=== PATIENT | male | born 1930 | race Caucasian/White ===

== ENCOUNTER 2017-11-08 08:00 | Outpatient (RCR) | payer OTHER ==
[~2017-11-08 08:00] MED LIST: ADVAIR 250-501 EACH INH; ATORVASTATIN CA20 MG ORAL; BENAZEPRIL HCL40 MG ORAL; COMBIVENT RESPIM4 GM IH; THEOPHYLLI80 MG/151 PO; VERAPAMIL ER240 MG ORAL
== END 2017-11-23 | disposition home or self-care (01) ==
LOC: PTY 08:00
DX: M54.18 Radiculopathy, sacral and sacrococcygeal region (principal); G62.89 Other specified polyneuropathies

== ENCOUNTER 2017-11-30 08:50 | Outpatient (RCR) | payer OTHER | END 2017-12-23 | disposition home or self-care (01) | LOC: PTY 08:50 | DX: M54.18 Radiculopathy, sacral and sacrococcygeal region (principal); G62.89 Other specified polyneuropathies ==